=== PATIENT | female | born 1965 | race African-American/Black ===

== ENCOUNTER 2022-09-25 05:37 | Day surgery (SDC) | payer OTHER ==
[2022-09-24 12:10] VITALS: BMI 32.1
[2022-09-25 13:21] VITALS: BP 153/66; PULSE 60; RESP 17
[2022-09-25 14:42] VITALS: TEMP 98
== END 2022-09-25 13:40 | disposition home or self-care (01) ==
LOC: JASU-ENDO 05:37
PROVIDERS: ATTEND Internal Medicine Gastroenterology
PROC: 0DBK8ZX Excision of Ascending Colon, Via Natural or Artificial Opening Endoscopic, Diagnostic (ICD-10-PCS; principal; 2022-09-25 11:30)
DX: Z12.11 Encounter for screening for malignant neoplasm of colon (principal); K63.5 Polyp of colon; K64.8 Other hemorrhoids; K57.30 Diverticulosis of large intestine without perforation or abscess without bleeding; I10 Essential (primary) hypertension
CPT/HCPCS: 88305-TC